=== PATIENT | female | born 1960 | race African-American/Black ===

== ENCOUNTER 2019-09-19 13:14 | Emergency (ER) | payer OTHER ==
[~2019-09-19] VITALS: Ht 170.2 cm; Wt 78.9 kg
[2019-09-19] MEDS ORDERED: BENADRYL25 MG PO (13:26)
[2019-09-19 15:37] VITALS: BP 120/61
== END 2019-09-19 15:38 | disposition home or self-care (01) ==
LOC: ER 13:14
DX: S40.011A Contusion of right shoulder, initial encounter (principal); S80.01XA Contusion of right knee, initial encounter; S60.051A Contusion of right little finger without damage to nail, initial encounter; S09.90XA Unspecified injury of head, initial encounter; R42 Dizziness and giddiness; Z79.899 Other long term (current) drug therapy; W18.39XA Other fall on same level, initial encounter; Y93.89 Activity, other specified; Y92.89 Other specified places as the place of occurrence of the external cause; Y99.0 Civilian activity done for income or pay